=== PATIENT | female | born 1960 | race Caucasian/White ===

== ENCOUNTER 2016-12-19 16:02 | Inpatient (IN) | payer BC ==
[2016-12-19] MEDS ORDERED: LIDOCAINE W/ SODIUM BICARB 0.5 ML SYR SUBD PRN (18:25)
[2016-12-19] MEDS ORDERED: ONDANSETRON 4 MG/2 ML VIAL IVP PRN (18:25)
[2016-12-19] MEDS: HYDROmorphone 2 MG/1 ML IVP PRN (19:24)
[2016-12-19] MEDS: HEPARIN 5000 UNIT/1 ML SUBCUT SCH (19:25)
[2016-12-19] MEDS: Sodium Chloride 0.9% 1,000 ML PRIMARY IV SCH (19:25)
--- NOTE | 2016-12-19 19:40 | PDOC ---
History and Physical - History of Present Illness History of Present Illness: This very nice 56-year-old female who started having some abdominal pain last week after she had a girls night out where she drank some beers and whiskey today she was seen at the urgent care for abdominal pain left lower quadrant CT scan was negative but the labs revealed elevated lipase. Cardiac called by Guru Michael for consultation I recommended patient be admitted she did agree but she did go home and eat first. Denies any chest pain nausea or vomiting at present time and is a pretty comfortable with her pain after her Dilantin injection Past Medical History Medical History: Hypertension, sleep apnea Tobacco Use: Current Every Day Smoker Substance Use Type: None Alcohol Use: Occasionally (Patient states that she's drank all her life for couple times a week beers and whiskey) Medication / Allergies Home Medications: Home Medications Medication Instructions Recorded Confirmed Type Bipap 1 unit #1 unit 08/21/12 History Oxygen (O2) 1 l NASAL HS #5 unit 04/02/13 Clinic Aspirin 81 mg PO DAILY tab 12/29/15 History Lisinopril/Hydrochlorothiazide 1 tab PO DAILY #90 tab 07/31/16 Clinic [Lisinopril-Hctz 20-25 Mg Tab] Mometasone/Formoterol [Dulera 200 2 puff INH Q12H #1 puff 07/31/16 Clinic Mcg/5 Mcg Inhaler] Allergies/Adverse Reactions: Allergies Allergy/AdvReac Type Severity Reaction Status Date / Time No Known Drug Allergies Allergy NOT Verified 12/19/16 18:42 APPLICABLE Review of Systems - Review of Systems All Systems: Reviewed & No Additional Complaints Except as Stated - Respiratory Respiratory: DENIES: Negative System Review, Cough, Sputum, Dyspnea At Rest, Dyspnea with Exertion, Pleuritic Pain, Hemoptysis, Wheezing, Other, See HPI - Cardiovascular Cardiovascular: DENIES: Negative System Review, Chest Pain, Edema, Syncope, Palpitations, Orthopnea, Paroxysmal Nocturnal Dyspnea, Other, See HPI - Gastrointestinal Gastrointestinal / Abdominal: REPORTS: Abdominal Pain Exam - Vitals Vital Signs: Vital Signs Temperature 97.2 F Temperature Source Temporal Artery Scan Pulse Rate [Pulse Oximeter] 121 Respiratory Rate 18 Blood Pressure [Left Arm] 113/49 Pulse Ox 93 Oxygen Flow Rate 0 Oxygen Delivery Method Nasal Cannula Height 5 ft 6 in Weight 88.723 kg - General General Appearance: POSITIVE: No Acute Distress, Cooperative - Head Head Exam: POSITIVE: Normal Inspection, Normocephalic, Atraumatic - Respiratory Respiratory Exam: POSITIVE: Clear to Auscultation - Bilaterally, Breathing Non Labored, Normal To Percussion, Normal to Percussion and Palpation - Cardiovascular Cardiovascular Exam: POSITIVE: RRR, No Murmur, No Clicks, No Gallops, No Rubs - GI/Abdominal Additional GI/Abdominal Exam Details: Left lower quadrant pain on deep palpation no guarding or rebound - Extremities Extremities Exam: POSITIVE: Normal Inspection, No Clubbing Present, No Edema Present - Neurological Neurological Exam: POSITIVE: Alert, Oriented x 3, No Facial Droop, Speech Intact / Clear Assessment and Plan - Patient Problems (1) Pancreatitis Current Visit: Yes Status: Acute Comment: Secondary to alcohol CT scan no obstruction we'll check the lipids in a.m. repeat lipase level and by mouth IV fluids at 125 an hour pain control with IV narcotics I discussed the case and with the patient and family members and nursing
[2016-12-20] MEDS: HYDROmorphone 2 MG/1 ML IVP PRN ×4 (00:49→11:33)
[2016-12-20] MEDS: Sodium Chloride 0.9% 1,000 ML PRIMARY IV SCH ×7 (00:50→20:53)
[2016-12-20] MEDS: HEPARIN 5000 UNIT/1 ML SUBCUT SCH ×3 (03:59→20:53)
[2016-12-20] MEDS ORDERED: diphenhydrAMINE 50 MG/1 ML VIAL IVP PRN (06:35)
[2016-12-20] MEDS: Mometasone/Formoterol [Dulera 200 Mcg/5 Mcg Inhaler] INH SCH (07:06)
[2016-12-20] MEDS: ASPIRIN 81 MG (BABY) CHEWABLE TABLET PO SCH (08:38)
[2016-12-20] MEDS ORDERED: LISINOPRIL 20 MG TABLET PO SCH (09:00)
[2016-12-20] MEDS ORDERED: HYDROCHLOROTHIAZIDE 25 MG TABLET PO SCH (09:00)
--- NOTE | 2016-12-20 10:50 | PDOC(PROG) ---
Interval History: Patient is feeling much better pain is decreased. No nausea no vomiting remains with the ice chips and she is totally fine with that Objective : Data - Labs Labs - Last 24 Hours: Laboratory Results 12/20/16 Range/Units 06:52 Lipase 448 H (23-300) IU/L Objective : Exam - General General Appearance: Cooperative - Eye Eye Exam: Normal Appearance, PERRL - Respiratory Respiratory Exam: Clear to Auscultation - Bilaterally, Breathing Non Labored, Normal To Percussion - Cardiovascular Cardiovascular Exam: RRR, No Murmur, No Clicks - GI/Abdominal GI/Abdominal Exam: Normal Bowel Sounds, Non Tender, Non Distended, Soft - Extremities Extremities Exam: No Clubbing Present, No Edema Present, No Cyanosis Present Assessment and Plan - Patient Problems (1) Pancreatitis Current Visit: Yes Status: Acute Comment: Improving pain is improved almost nonexistent lipase down to 400 was advanced to clear liquids in the morning continue IV fluids and pain medication
[2016-12-20] MEDS ORDERED: Sodium Chloride 0.9% 1,000 ML PRIMARY IV ONE ×2 (12:40→18:16)
--- NOTE | 2016-12-20 13:38 | DI ---
CT ABD W/CN AND PELVIS W/CN,12/20/2016 12:33 PM: Clinical History: Pancreatitis with hypotension Previous Exam: December 19, 2016 Findings: Multiple helically acquired CT images are obtained through the abdomen and pelvis following the intra venous administration of contrast. The appendix is normal. There is some stable free fluid within the deep pelvis. The urinary bladder i s unremarkable. The uterus is unremarkable. There are multiple colonic diverticula without evidence o f acute diverticulitis. There is some layering density within the gallbladder. The adrenals and kidneys are unremarkable. There is some vague inflammatory changes near the tip of t he pancreas. There is no abscess nor pseudocyst. There is some stable density within the right lung base. A few peripheral vascular calcifications are seen. Impression: Inflammatory changes of the tail of the pancreas may represent acute pancreatitis. Cholelithiasis. Stable airspace disease along the posterior right lung base.
[2016-12-20] MEDS ORDERED: Cefepime Inj 2 GM in Sodium Chloride 0.9% 100 ML IV SCH (14:00)
[2016-12-20] MEDS: NORMAL SALINE 10 ML SYRINGE FLUSH IVP PRN (14:00)
[2016-12-20 14:10] LABS: HEMATOCRIT 43.2 % (37.0-47.0); HEMOGLOBIN 14.1 g/dL (12.0-16.0); MEAN CORPUSCULAR HEMOGLOBIN 32.4 PG (27-31); MEAN CORPUSCULAR HGB CONC 32.6 g/dL (33-37); MEAN CORPUSCULAR VOLUME 99.3 FL (81-99); MEAN PLATELET VOLUME 9.7 FL (7.4-12.2); RED BLOOD COUNT 4.35 10^6/uL (4.20-5.40)
[2016-12-20 14:15] LABS: BLOOD UREA NITROGEN 17 mg/dL (7-22); BUN/CREATININE RATIO 24.28 (6-20); CALCIUM 8.2 mg/dL (8.7-10.7); EST GLOMERULAR FILTRATION > 60 (>60 ml/min/1.73m(2)); SERUM ALBUMIN 3.2 g/dL (3.5-4.8)
[2016-12-20 14:20] LABS: LIPASE 412 IU/L (23-300)
[2016-12-20 14:42] LABS: COLLECTION SITE R RAD
[2016-12-20 14:43] LABS: ABG BASE EXCESS 0 MMOL/L (-2-2); ABG OXYGEN SATURATION 86 % (90-100); ABG PCO2 49 MMHG (34-38); ABG PH 7.32 (7.35-7.45); ABG PO2 56 MMHG (65-75); ALLEN TEST y
[2016-12-20 14:50] LABS: PLATELET MORPHOLOGY COMMENT NORMAL MORPHOLOGY (NORM); RBC MORPHOLOGY COMMENT NORMAL MORPHOLOGY (NORM); WBC MORPHOLOGY COMMENT NORMAL MORPHOLOGY (NORM)
[2016-12-20 14:51] LABS: BAND NEUTROPHILS % 0 % (0-10); BASOPHILS % (MANUAL) 0 % (0-1); EOSINOPHILS % (MANUAL) 0 % (0-8); LYMPHOCYTES % (MANUAL) 38 % (10-50); METAMYELOCYTES % 0 %; MONOCYTES % (MANUAL) 4 % (0-12); MYELOCYTES % 0 %; NEUTROPHILS % (MANUAL) 58 % (50-80); PROMYELOCYTES % 0 %
[2016-12-20] MEDS ORDERED: methylPREDNISolone Succ Inj 250 MG in Sodium Chloride 0.9% 100 ML IV ONE (15:18)
[2016-12-20] MEDS ORDERED: methylPREDNISolone 125 MG/2 ML VIAL IV ONE (15:30)
[2016-12-20] MEDS: Sodium Chloride 0.9% 1,000 ML PRIMARY IV ONE ×2 (15:32→16:33)
[2016-12-20] MEDS: Pantoprazole Inj 40 MG in Normal Saline Flush 10 ML IVP SCH (15:32)
[2016-12-20] MEDS ORDERED: HYDROCORTISONE 100 MG/2 ML IVP ONE (16:45)
--- NOTE | 2016-12-20 17:54 | EKG ---
[address] [address] Measurements Intervals [place] Rate: 60 P: 75 NC: 181 QRS: 76 QRSD: 103 T: 68 QT: 434 QTc: 435 Interpretive Statements SINUS RHYTHM Compared to ECG 12/01/2014 11:13:15 No significant changes Electronically Signed On 12-20-16 18:15:28 MDT by Cory Wells [email or web address]
[2016-12-21] MEDS: Pantoprazole Inj 40 MG in Normal Saline Flush 10 ML IVP SCH ×2 (02:02→13:44)
[2016-12-21] MEDS: Sodium Chloride 0.9% 1,000 ML PRIMARY IV SCH ×2 (04:41→10:03)
[2016-12-21] MEDS: HEPARIN 5000 UNIT/1 ML SUBCUT SCH ×3 (04:49→19:32)
[2016-12-21 05:46] LABS: BASOPHILS # (AUTO) 0.01 10*3/UL; BASOPHILS % (AUTO) 0.2 % (0-1); EOSINOPHILS # (AUTO) 0 10*3/UL; EOSINOPHILS % (AUTO) 0 % (0-8); HEMATOCRIT 43.2 % (37.0-47.0); HEMOGLOBIN 14.2 g/dL (12.0-16.0); LYMPHOCYTES # (AUTO) 0.89 10*3/uL; MEAN CORPUSCULAR HEMOGLOBIN 32.1 PG (27-31); MEAN CORPUSCULAR HGB CONC 32.9 g/dL (33-37); MEAN CORPUSCULAR VOLUME 97.5 FL (81-99); MEAN PLATELET VOLUME 10.4 FL (7.4-12.2); MONOCYTES % (AUTO) 1.9 % (5-15); NEUTROPHILS # (AUTO) 4.25 10*3/UL; NEUTROPHILS % (AUTO) 80.8 % (50-80); RED BLOOD COUNT 4.43 10^6/uL (4.20-5.40)
[2016-12-21 05:59] LABS: BLOOD UREA NITROGEN 14 mg/dL (7-22); BUN/CREATININE RATIO 23.33 (6-20); CHOL/HDL RATIO 4.14 RATIO (0-4.0); EST GLOMERULAR FILTRATION > 60 (>60 ml/min/1.73m(2)); HDL CHOLESTEROL 34 mg/dL (40-150); LIPASE 42 IU/L (23-300); SERUM ALBUMIN 3.2 g/dL (3.5-4.8); SERUM CHOLESTEROL 141 mg/dL (120-200)
[2016-12-21 06:00] LABS: PLATELET MORPHOLOGY COMMENT NORMAL MORPHOLOGY (NORM); RBC MORPHOLOGY COMMENT NORMAL MORPHOLOGY (NORM); WBC MORPHOLOGY COMMENT NORMAL MORPHOLOGY (NORM)
[2016-12-21] MEDS: Mometasone/Formoterol [Dulera 200 Mcg/5 Mcg Inhaler] INH SCH (06:51)
[2016-12-21] MEDS ORDERED: methylPREDNISolone 125 MG/2 ML VIAL IVP ONE (08:24)
[2016-12-21] MEDS ORDERED: Sodium Chloride 0.9% 1,000 ML PRIMARY IV ONE (08:24)
[2016-12-21] MEDS: ASPIRIN 81 MG (BABY) CHEWABLE TABLET PO SCH (08:24)
[2016-12-21] MEDS: NORMAL SALINE 10 ML SYRINGE FLUSH IVP PRN ×2 (08:50→12:49)
--- NOTE | 2016-12-21 09:38 | DI ---
CT CHEST W/O CONTRAST,12/21/2016 7:00 AM: Clinical History: Airspace disease Previous Exam: August 12, 2008 Findings: Multiple helically acquired CT images are obtained through the chest without contrast, and demonstrat e airspace disease within the lung bases which appears to represent atelectasis. There is no evidence of infiltrate. There is some mild diffuse COPD. A few coronary artery calcifications are noted. Mild degenerative changes of the spine are seen. The aorta is unremarkable. Impression: Subsegmental atelectasis in the lung bases without evidence of pneumonia.
--- NOTE | 2016-12-21 11:42 | PDOC(PROG) ---
Interval History: Patient is doing great today no more pain tolerated her clear liquid diet today her blood pressure is improved we had a long discussion with her family members about alcohol cessation and smoking cessation she received this very well I explained to her about third spacing of pancreatitis as well as to the nurses. Objective : Data - Labs CBC and BMP: 12/21/16 04:53 12/21/16 04:53 Labs - Last 24 Hours: Laboratory Results 12/20/16 12/20/16 12/21/16 Range/Units 14:00 14:35 04:53 WBC 7.85 5.26 (4.8-10.8) 10^3/uL RBC 4.35 4.43 (4.20-5.40) 10^6/uL Hgb 14.1 14.2 (12.0-16.0) g/dL Hct 43.2 43.2 (37.0-47.0) % MCV 99.3 H 97.5 (81-99) FL MCH 32.4 H 32.1 H (27-31) PG MCHC 32.6 L 32.9 L (33-37) g/dL RDW Std Deviation 47.5 45.2 (39-50) fL RDW Coeff of Cristiane 13.3 12.7 (11.5-14.5) % Plt Count 343 332 (140-350) 10*3/uL MPV 9.7 10.4 (7.4-12.2) FL Immature Gran % (Auto) 0.2 (0-5) % Neut % (Auto) 80.8 H (50-80) % Lymph % (Auto) 16.9 (10-50) % [place] % (Auto) 1.9 L (5-15) % Eos % (Auto) 0 (0-8) % Baso % (Auto) 0.2 (0-1) % Immature Gran # (Auto) 0.01 10*3/UL Neut # (Auto) 4.25 10*3/UL Lymph # (Auto) 0.89 10*3/uL [place] # (Auto) 0.10 L (0.3-0.8) 10*3/UL Eos # (Auto) 0 10*3/UL Baso # (Auto) 0.01 10*3/UL Neutrophils % (Manual) 58 (50-80) % Band Neutrophils % 0 (0-10) % Lymphocytes % (Manual) 38 (10-50) % Monocytes % (Manual) 4 (0-12) % Eosinophils % (Manual) 0 (0-8) % Basophils % (Manual) 0 (0-1) % Metamyelocytes % 0 % Myelocytes % 0 % Promyelocytes % 0 % Blast Cells 0 (0-1) % WBC Morphology Comment Normal morphology Normal morphology (NORM) Plt Morphology Comment Normal morphology Normal morphology (NORM) RBC Morph Comment Normal morphology Normal morphology (NORM) ABG pH 7.32 L (7.35-7.45) ABG pCO2 49 H (34-38) MMHG ABG pO2 56 L (65-75) MMHG ABG HCO3 26 (22-26) ABG Total CO2 27 (23-27) MMOL/L ABG O2 Saturation 86 L (90-100) % ABG Base Excess 0 (-2-2) MMOL/L Khoa Test y FiO2 3l/nc Sodium 138 138 (135-145) meq/L Potassium 4.4 4.5 (3.8-5.2) meq/L Chloride 104 107 (98-112) meq/L Carbon Dioxide 30 24 (23-33) meq/L Anion Gap 4 L 7 (5-20) BUN 17 14 (7-22) mg/dL Creatinine 0.7 0.6 (0.50-1.20) mg/dL Estimated GFR > 60 > 60 (>60 ml/min/1.73m(2)) BUN/Creatinine Ratio 24.28 H 23.33 H (6-20) Glucose 77 L 140 H (78-110) mg/dL Calculated Osmolality 286.0 288.0 (267-292) mOsm/kg Lactic Acid < 0.5 L (0.70-2.10) MMOL/L Calcium 8.2 L 8.0 L (8.7-10.7) mg/dL Total Bilirubin 0.5 0.5 (0.3-1.2) mg/dL AST 19 35 (8-39) IU/L ALT 38 43 (9-52) IU/L Alkaline Phosphatase 54 66 (38-126) IU/L Troponin I < 0.012 (< 0.040) ng/mL Total Protein 5.9 L 5.9 L (6.1-8.0) g/dL Albumin 3.2 L 3.2 L (3.5-4.8) g/dL Globulin 2.7 2.7 (2.50-4.10) g/dL Albumin/Globulin Ratio 1.10 L 1.10 L (1.3-2.0) mg/g Triglycerides 71 (44-200) mg/dL Cholesterol 141 (120-200) mg/dL LDL Cholesterol, Calc 92.800 mg/dL VLDL Cholesterol 14 (0-40) mg/dL HDL Cholesterol 34 L (40-150) mg/dL Cholesterol/HDL Ratio 4.14 H (0-4.0) RATIO Amylase 68 (30-110) U/L Lipase 412 H 42 (23-300) IU/L Objective : Exam - General General Appearance: Cooperative - Head Head Exam: Normal Inspection - Respiratory Respiratory Exam: Clear to Auscultation - Bilaterally, Breathing Non Labored, Normal To Percussion - Cardiovascular Cardiovascular Exam: RRR, No Murmur - GI/Abdominal GI/Abdominal Exam: Normal Bowel Sounds, Non Tender, Non Distended, Soft - Extremities Extremities Exam: No Clubbing Present, No Edema Present Assessment and Plan - Patient Problems (1) Pancreatitis Current Visit: Yes Status: Acute Comment: Patient is improved lipase within normal limits blood pressure has stabilized most likely patient had third spacing I did cardiothoracic impotence and showed some mild thoracic fluid content I will give her a touch of IV Lasix this tells me that she is recuperating really well and her pancreatitis is improved will also repeat this test this afternoon to see if her thoracic fluid content diminished as well I explained to her in detail mechanism of disease and processes about pancreatitis (2) COPD (chronic obstructive pulmonary disease) Current Visit: Yes Status: Acute Comment: On the CT scan she is on oxygen at home we will have to walk her and see her oxygen requirements here where she needs him 24 hours a day I will also start some inhalers this could benefit the patient so given her 2 doses of steroids as well +1 dose of hydrocortisone (3) Smoking addiction Current Visit: Yes Status: Acute Comment: I counseled patient extensively on smoking cessation and also further help with counseling and medication declines at present - Assessment / Plan Additional Assessment/Plan Details: Discussed the disease state and educated nursing staff
[2016-12-21] MEDS ORDERED: FUROSEMIDE 10 MG/1 ML - 2 ML VIAL IVP ONE (12:45)
--- NOTE | 2016-12-21 14:01 | CD ---
[facility] [place] Interpretive Statements [email or web address]
--- NOTE | 2016-12-21 16:58 | CD ---
[facility] Interpretive Statements [email or web address]
[2016-12-21] MEDS: FLUTICASONE/SALMETEROL 250/50 UD INHALER INH SCH (21:07)
[2016-12-22] MEDS: Pantoprazole Inj 40 MG in Normal Saline Flush 10 ML IVP SCH (02:27)
[2016-12-22] MEDS: HEPARIN 5000 UNIT/1 ML SUBCUT SCH (05:00)
[2016-12-22 05:18] VITALS: RESP 20
[2016-12-22 06:10] LABS: BLOOD UREA NITROGEN 11 mg/dL (7-22); BUN/CREATININE RATIO 18.33 (6-20); CALCIUM 8.8 mg/dL (8.7-10.7); EST GLOMERULAR FILTRATION > 60 (>60 ml/min/1.73m(2))
[2016-12-22 06:11] LABS: LIPASE 81 IU/L (23-300); SERUM ALBUMIN 3.2 g/dL (3.5-4.8)
[2016-12-22] MEDS ORDERED: TIOTROPIUM BROMIDE 18 MCG CAPSULE INH SCH (07:00)
[2016-12-22] MEDS: Mometasone/Formoterol [Dulera 200 Mcg/5 Mcg Inhaler] INH SCH (07:19)
[2016-12-22] MEDS: FLUTICASONE/SALMETEROL 250/50 UD INHALER INH SCH (07:19)
[2016-12-22] MEDS: ASPIRIN 81 MG (BABY) CHEWABLE TABLET PO SCH (10:17)
--- NOTE | 2016-12-22 12:26 | DCSUMMARY ---
Hospitalization Summary Admit Date: 12/19/16 Discharge Date: 12/22/16 Primary Diagnosis:: pancreatitis Hospital Course: This is a very pleasant 56-year-old female that was admitted with nausea and vomiting and abdominal pain and was found to have pancreatitis. It was felt to be related to alcohol use. It was in the tail of the pancreas. The symptoms of pain, nausea and vomiting, all improved and over the last 2 days of the hospital stay, the patient had no pain. CT scan showed cholelithiasis, but abdominal ultrasound results, pending today, did not appear to show stones in the gallbladder. I discussed with surgery, and the patient will see Dr. Butts outside the hospital in the office in 2 weeks to review and determine if cholecystectomy is necessary. The patient did not have any signs of alcohol withdrawal here. The patient did have hypotension, presumably related to use of blood pressure medication that she is normally on at home. At this time, I think the best thing to do would be to hold off on lisinopril/chlorothiazide for the short- term and have her review with her primary provider in the clinic. I will have the patient check her blood pressure daily, primarily in the morning for the next week or so to review. Patient has COPD and sleep apnea and we'll continue her therapies as an outpatient. No complaints of chest pain, shortness breath, nausea or vomiting, or abdominal pain. Patient is eating lunch and not having any problems. She was "ready to go home". Assessment and Plan: 1. As per discharge assessments noted 2. Disposition: Patient is discharged home. 3. Condition on discharge, stable and improved. 4. Diet: regular diet 5. Activities: resume normal activities, but avoid alcohol 6. Follow-Up: 1. Primary care provider 1 week to review blood pressures 2. Surgery in 2 weeks to review possible cholecystectomy and also screening colonoscopy 7. Medications at the Time of Discharge: Home Medications Medication Instructions Recorded Confirmed Type Bipap 1 unit #1 unit 08/21/12 History Oxygen (O2) 1 l NASAL HS #5 unit 04/02/13 Clinic Aspirin 81 mg PO DAILY tab 12/29/15 History Mometasone/Formoterol [Dulera 200 2 puff INH Q12H #1 puff 07/31/16 Clinic Mcg/5 Mcg Inhaler] 8. Time, care, counseling and coordination of care for this discharge is greater than 30 minutes. Exam - Vitals Vital Signs: Vital Signs Temperature 98 F Temperature Source Temporal Artery Scan Pulse Rate [Pulse Oximeter] 71 Respiratory Rate 20 Blood Pressure [Right Arm] 117/60 Blood Pressure [Left Arm] 110/64 Pulse Ox 90 Oxygen Flow Rate 2.5 Oxygen Delivery Method Room Air Height 5 ft 6 in Weight 203 lb - General General Appearance: POSITIVE: No Acute Distress, Cooperative - Eye Eye Exam: POSITIVE: No Scleral Icterus - ENT ENT Exam: POSITIVE: Mucous Membranes Moist - Respiratory Respiratory Exam: POSITIVE: Clear to Auscultation - Bilaterally, Breathing Non Labored - Cardiovascular Cardiovascular Exam: POSITIVE: RRR, No Murmur, No Clicks, No Gallops, No Rubs, No JVD - GI/Abdominal GI/Abdominal Exam: POSITIVE: Normal Bowel Sounds, Non Tender, Non Distended, Soft - Extremities Extremities Exam: POSITIVE: No Clubbing Present, No Edema Present, No Cyanosis Present - Neurological Neurological Exam: POSITIVE: Alert, Oriented x 3, No Facial Droop, Speech Intact / Clear, Moves All Extremities Equally Data Perinent Studies: Laboratory Results 12/20/16 12/20/16 12/20/16 Range/Units 06:52 14:00 14:35 WBC 7.85 (4.8-10.8) 10^3/uL RBC 4.35 (4.20-5.40) 10^6/uL Hgb 14.1 (12.0-16.0) g/dL Hct 43.2 (37.0-47.0) % MCV 99.3 H (81-99) FL MCH 32.4 H (27-31) PG MCHC 32.6 L (33-37) g/dL RDW Std Deviation 47.5 (39-50) fL RDW Coeff of Cristiane 13.3 (11.5-14.5) % Plt Count 343 (140-350) 10*3/uL MPV 9.7 (7.4-12.2) FL Immature Gran % (Auto) (0-5) % Neut % (Auto) (50-80) % Lymph % (Auto) (10-50) % [place] % (Auto) (5-15) % Eos % (Auto) (0-8) % Baso % (Auto) (0-1) % Immature Gran # (Auto) 10*3/UL Neut # (Auto) 10*3/UL Lymph # (Auto) 10*3/uL [place] # (Auto) (0.3-0.8) 10*3/UL Eos # (Auto) 10*3/UL Baso # (Auto) 10*3/UL Neutrophils % (Manual) 58 (50-80) % Band Neutrophils % 0 (0-10) % Lymphocytes % (Manual) 38 (10-50) % Monocytes % (Manual) 4 (0-12) % Eosinophils % (Manual) 0 (0-8) % Basophils % (Manual) 0 (0-1) % Metamyelocytes % 0 % Myelocytes % 0 % Promyelocytes % 0 % Blast Cells 0 (0-1) % WBC Morphology Comment Normal morphology (NORM) Plt Morphology Comment Normal morphology (NORM) RBC Morph Comment Normal morphology (NORM) ABG pH 7.32 L (7.35-7.45) ABG pCO2 49 H (34-38) MMHG ABG pO2 56 L (65-75) MMHG ABG HCO3 26 (22-26) ABG Total CO2 27 (23-27) MMOL/L ABG O2 Saturation 86 L (90-100) % ABG Base Excess 0 (-2-2) MMOL/L Khoa Test y FiO2 3l/nc Sodium 138 (135-145) meq/L Potassium 4.4 (3.8-5.2) meq/L Chloride 104 (98-112) meq/L Carbon Dioxide 30 (23-33) meq/L Anion Gap 4 L (5-20) BUN 17 (7-22) mg/dL Creatinine 0.7 (0.50-1.20) mg/dL Estimated GFR > 60 (>60 ml/min/1.73m(2)) BUN/Creatinine Ratio 24.28 H (6-20) Glucose 77 L (78-110) mg/dL Calculated Osmolality 286.0 (267-292) mOsm/kg Lactic Acid < 0.5 L (0.70-2.10) MMOL/L Calcium 8.2 L (8.7-10.7) mg/dL Total Bilirubin 0.5 (0.3-1.2) mg/dL AST 19 (8-39) IU/L ALT 38 (9-52) IU/L Alkaline Phosphatase 54 (38-126) IU/L Troponin I < 0.012 (< 0.040) ng/mL Total Protein 5.9 L (6.1-8.0) g/dL Albumin 3.2 L (3.5-4.8) g/dL Globulin 2.7 (2.50-4.10) g/dL Albumin/Globulin Ratio 1.10 L (1.3-2.0) mg/g Triglycerides (44-200) mg/dL Cholesterol (120-200) mg/dL LDL Cholesterol, Calc mg/dL VLDL Cholesterol (0-40) mg/dL HDL Cholesterol (40-150) mg/dL Cholesterol/HDL Ratio (0-4.0) RATIO Amylase 68 (30-110) U/L Lipase 448 H 412 H (23-300) IU/L 12/21/16 12/22/16 Range/Units 04:53 05:13 WBC 5.26 (4.8-10.8) 10^3/uL RBC 4.43 (4.20-5.40) 10^6/uL Hgb 14.2 (12.0-16.0) g/dL Hct 43.2 (37.0-47.0) % MCV 97.5 (81-99) FL MCH 32.1 H (27-31) PG MCHC 32.9 L (33-37) g/dL RDW Std Deviation 45.2 (39-50) fL RDW Coeff of Cristiane 12.7 (11.5-14.5) % Plt Count 332 (140-350) 10*3/uL MPV 10.4 (7.4-12.2) FL Immature Gran % (Auto) 0.2 (0-5) % Neut % (Auto) 80.8 H (50-80) % Lymph % (Auto) 16.9 (10-50) % [place] % (Auto) 1.9 L (5-15) % Eos % (Auto) 0 (0-8) % Baso % (Auto) 0.2 (0-1) % Immature Gran # (Auto) 0.01 10*3/UL Neut # (Auto) 4.25 10*3/UL Lymph # (Auto) 0.89 10*3/uL [place] # (Auto) 0.10 L (0.3-0.8) 10*3/UL Eos # (Auto) 0 10*3/UL Baso # (Auto) 0.01 10*3/UL Neutrophils % (Manual) (50-80) % Band Neutrophils % (0-10) % Lymphocytes % (Manual) (10-50) % Monocytes % (Manual) (0-12) % Eosinophils % (Manual) (0-8) % Basophils % (Manual) (0-1) % Metamyelocytes % % Myelocytes % % Promyelocytes % % Blast Cells (0-1) % WBC Morphology Comment Normal morphology (NORM) Plt Morphology Comment Normal morphology (NORM) RBC Morph Comment Normal morphology (NORM) ABG pH (7.35-7.45) ABG pCO2 (34-38) MMHG ABG pO2 (65-75) MMHG ABG HCO3 (22-26) ABG Total CO2 (23-27) MMOL/L ABG O2 Saturation (90-100) % ABG Base Excess (-2-2) MMOL/L Khoa Test FiO2 Sodium 138 142 (135-145) meq/L Potassium 4.5 3.6 L (3.8-5.2) meq/L Chloride 107 109 (98-112) meq/L Carbon Dioxide 24 25 (23-33) meq/L Anion Gap 7 8 (5-20) BUN 14 11 (7-22) mg/dL Creatinine 0.6 0.6 (0.50-1.20) mg/dL Estimated GFR > 60 > 60 (>60 ml/min/1.73m(2)) BUN/Creatinine Ratio 23.33 H 18.33 (6-20) Glucose 140 H 97 (78-110) mg/dL Calculated Osmolality 288.0 292.0 (267-292) mOsm/kg Lactic Acid (0.70-2.10) MMOL/L Calcium 8.0 L 8.8 (8.7-10.7) mg/dL Total Bilirubin 0.5 0.6 (0.3-1.2) mg/dL AST 35 27 (8-39) IU/L ALT 43 42 (9-52) IU/L Alkaline Phosphatase 66 63 (38-126) IU/L Troponin I (< 0.040) ng/mL Total Protein 5.9 L 5.8 L (6.1-8.0) g/dL Albumin 3.2 L 3.2 L (3.5-4.8) g/dL Globulin 2.7 2.6 (2.50-4.10) g/dL Albumin/Globulin Ratio 1.10 L 1.20 L (1.3-2.0) mg/g Triglycerides 71 (44-200) mg/dL Cholesterol 141 (120-200) mg/dL LDL Cholesterol, Calc 92.800 mg/dL VLDL Cholesterol 14 (0-40) mg/dL HDL Cholesterol 34 L (40-150) mg/dL Cholesterol/HDL Ratio 4.14 H (0-4.0) RATIO Amylase (30-110) U/L Lipase 42 81 (23-300) IU/L Patient Problems - Patient Problem List (1) Pancreatitis Current Visit: Yes Status: Acute (2) COPD (chronic obstructive pulmonary disease) Current Visit: Yes Status: Chronic Qualifiers: COPD type: emphysema Emphysema type: unspecified Qualified Description: Pulmonary emphysema, unspecified emphysema type Qualifier Code(s): (J43.9) Emphysema, unspecified (3) Hypertension Current Visit: Yes Status: Resolved Qualifiers: Hypertension type: unspecified Qualified Description: Hypertension, unspecified type Qualifier Code(s): (I10) Essential (primary) hypertension (4) Hypotension Current Visit: Yes Status: Acute
[2016-12-22 12:35] VITALS: TEMP 97.4
--- NOTE | 2016-12-22 13:31 | DI ---
HISTORY: Gallstones. PREVIOUS EXAM: None available. TECHNIQUE: Multiple grayscale and color Doppler sonographic images are obtained through the right up per quadrant. FINDINGS: Ultrasound images demonstrate normal liver. The gallbladder is unremarkable. The common bowel duct measures 4 mm. The right kidney is normal measuring 12.2 cm in length without hydronephrosis or nephrolithiasis. IMPRESSION: 1. Normal right upper quadrant ultrasound. NOTE: The interpreting Radiologist was not present at the time of ultrasound interrogation.
== END 2016-12-22 12:45 | disposition home or self-care (01) | DRG 440 ==
LOC: UNDOADMIN 16:02 → MED/SURG 16:02
PROVIDERS: ADMIT Internal Medicine; ATTEND Internal Medicine
DX: K85.90 Acute pancreatitis without necrosis or infection, unspecified (principal); J43.9 Emphysema, unspecified; I10 Essential (primary) hypertension; I95.9 Hypotension, unspecified; F17.210 Nicotine dependence, cigarettes, uncomplicated
CPT/HCPCS: 36415; 36600; 71250; 74177; 76705; 80053; 80061; 82150; 82803; 83605; 83690; 84484; 85007; 85025; 93005; 93010; 93701; 94640; 94761; J0692; J1170; J1200; J1644; J1720; J1940; J3490; J7030; J7050

== ENCOUNTER → 2016-12-19 | Outpatient (CLI) | payer BC ==
[2010-08-03 16:07] VITALS: BP 135/93
[2016-12-19 11:23] LABS: HEMOGLOBIN 15.9 g/dL (12.0-16.0); MEAN CORPUSCULAR HEMOGLOBIN 32.3 PG (27-31); MEAN CORPUSCULAR HGB CONC 33.8 g/dL (33-37); MEAN CORPUSCULAR VOLUME 95.3 FL (81-99); MEAN PLATELET VOLUME 9.6 FL (7.4-12.2); RED BLOOD COUNT 4.93 10^6/uL (4.20-5.40)
[2016-12-19 11:34] LABS: BLOOD UREA NITROGEN 17 mg/dL (7-22); BUN/CREATININE RATIO 24.28 (6-20); C-REACTIVE PROTEIN 3.3 mg/dL (0.0-0.9); CALCIUM 9.8 mg/dL (8.7-10.7); EST GLOMERULAR FILTRATION > 60 (>60 ml/min/1.73m(2)); LIPASE 805 IU/L (23-300); SERUM ALBUMIN 4.3 g/dL (3.5-4.8)
[2016-12-19 12:02] LABS: BAND NEUTROPHILS % 0 % (0-10); BASOPHILS % (MANUAL) 1 % (0-1); EOSINOPHILS % (MANUAL) 0 % (0-8); LYMPHOCYTES % (MANUAL) 33 % (10-50); METAMYELOCYTES % 0 %; MONOCYTES % (MANUAL) 2 % (0-12); MYELOCYTES % 0 %; NEUTROPHILS % (MANUAL) 64 % (50-80); PLATELET MORPHOLOGY COMMENT NORMAL MORPHOLOGY (NORM); PROMYELOCYTES % 0 %; RBC MORPHOLOGY COMMENT NORMAL MORPHOLOGY (NORM); WBC MORPHOLOGY COMMENT NORMAL MORPHOLOGY (NORM)
--- NOTE | 2016-12-19 14:18 | DI ---
CT ABD W/CN AND PELVIS W/CN,12/19/2016 11:19 AM: Clinical History: Abdominal pain Previous Exam: 05/11/10 Findings: Multiple helically acquired CT images are obtained through the abdomen and pelvis following the intra venous and oral administration of contrast. There is a small right pleural effusion. No fractures are seen. Diffuse degenerative changes of the spine are seen. Peripheral vascular calcifications are seen. The urinary bladder is unremarkable. There is a trace amount of free fluid. The appendix is normal. The liver, gallbladder, pancreas, spleen, adrenals and kidneys are unremarkable. Multiple colonic diverticula are noted without evidence of acute diverticulitis. Impression: No acute intra-abdominal pathology. Small right pleural effusion.
== END ==
LOC: MOB LAB 10:36
PROVIDERS: ATTEND Physician Assistant
DX: R10.12 Left upper quadrant pain (principal); R10.11 Right upper quadrant pain; R10.13 Epigastric pain; J90 Pleural effusion, not elsewhere classified; R11.0 Nausea; Z72.0 Tobacco use
CPT/HCPCS: 36415; 74177; 80053; 82150; 83690; 85007; 86140